=== PATIENT | male | born 1960 | race Caucasian/White ===

== ENCOUNTER 2019-07-01 09:05 | Outpatient (CLI) | payer BC ==
--- NOTE | 2019-07-01 14:15 | ULT ---
TESTICULAR ULTRASOUND: HISTORY: The patient reports a palpable abnormality in the right side of the scrotum first noted about 5 month s ago, softer now than when he first noticed it. He also reports a cyst removed from the anterior as pect of the left testicle at age 18. Real-time imaging of the right and left testes was performed. The right testicle measures 5 cm in le ngth and the left testicle 4.6 cm. No testicular mass is identified. The left epididymis region is normal in appearance. Lateral to the left testicle and epididymis is a septated cystic structure measuring 1.3 x 1.7 cm in size and does not show any definite flow. It ap pears to be more in the scrotal wall, probably just some incidental finding, perhaps some sort of thr ombosed vessels, although not definitive for this. There is no flow demonstrated within this area. On the right side superior to the right testicle and epididymis is a mass-like area. This was discus sed with the technologist who felt at times there may be peristalsis associated with this, although n ot definitive. DOPPLER EVALUATION WITH SPECTRAL ANALYSIS: Normal flow is shown to both testes. IMPRESSION: 1. Mass that is superior to the right testicle and epididymis. I feel this is most likely bowel. T he technologist felt that there was some peristalsis, but this was not definitive. I would still vamshi pect this is most likely an inguinal hernia. I would suggest CT for confirmation given the somewhat equivocal ultrasound findings. 2. Septated-appearing cystic area which appears to be along the scrotal wall on the left. It does a ppear to be separate from the epididymis and testicle and is probably just an incidental finding. POS: [facility]
== END 2019-07-01 09:06 | disposition home or self-care (01) ==
LOC: SCSULT 09:05
PROVIDERS: ATTEND Family Medicine
DX: N50.89 Other specified disorders of the male genital organs (principal)
CPT/HCPCS: 76870; 93976

== ENCOUNTER 2019-07-21 14:43 | Outpatient (CLI) | payer BC ==
--- NOTE | 2019-07-21 15:04 | RAD ---
EXAM: XR Sacroiliac Joints >=3 View PROVIDED CLINICAL HISTORY: Sacral pain COMPARISON: None FINDINGS: The sacroiliac joints appear symmetric in terms of width. There is no evidence for periarticular scle rosis or erosion of the subchondral bone plate. No evidence for fracture or other acute osseous abnormality. No lytic or blastic lesions are seen. IMPRESSION: No radiographic evidence for sacroiliitis.
== END 2019-07-21 14:44 | disposition home or self-care (01) ==
LOC: SCSRAD 14:43
PROVIDERS: ATTEND Internal Medicine Rheumatology
DX: M54.5 Low back pain (principal)
CPT/HCPCS: 72202

== ENCOUNTER 2019-11-28 19:00 | Outpatient (CLI) | payer BC | END 2019-11-28 19:01 | disposition home or self-care (01) | LOC: SLEEPLAB 19:00 | PROVIDERS: ATTEND Internal Medicine Critical Care Medicine | DX: G47.33 Obstructive sleep apnea (adult) (pediatric) (principal); R06.83 Snoring; R09.89 Other specified symptoms and signs involving the circulatory and respiratory systems; I50.9 Heart failure, unspecified; G47.00 Insomnia, unspecified; G47.10 Hypersomnia, unspecified | CPT/HCPCS: 95811 ==

== ENCOUNTER 2019-12-10 19:00 | Outpatient (CLI) | payer BC | END 2019-12-10 19:01 | disposition home or self-care (01) | LOC: SLEEPLAB 19:00 | PROVIDERS: ATTEND Internal Medicine Critical Care Medicine | DX: G47.33 Obstructive sleep apnea (adult) (pediatric) (principal); R09.89 Other specified symptoms and signs involving the circulatory and respiratory systems; R06.83 Snoring; I50.9 Heart failure, unspecified | CPT/HCPCS: 95811 ==